=== PATIENT | female | born 1955 | race Caucasian/White ===

== ENCOUNTER 2023-03-18 09:00 | Emergency (ER) | payer MEDICARE, OTHER ==
[~2023-03-18] VITALS: Ht 175.3 cm; Wt 95.0 kg
[2023-03-18] MEDS ORDERED: SYNTHROID25 MCG PO (09:10)
[2023-03-18] MEDS ORDERED: WELLBUTRIN XL300 MG PO (09:10)
[2023-03-18] MEDS ORDERED: CEPHALEXIN500 M1 PO (09:47)
[2023-03-18 10:48] VITALS: BP 113/99
== END 2023-03-18 10:50 | disposition home or self-care (01) ==
LOC: ED 09:00
DX: L03.116 Cellulitis of left lower limb (principal); Z79.890 Hormone replacement therapy; Z79.899 Other long term (current) drug therapy
CPT/HCPCS: 99283; A9270